=== PATIENT | female | born 1970 | race Caucasian/White ===

== ENCOUNTER 2017-12-25 09:29 | Day surgery (SDC) | payer OTHER ==
[2017-12-24 12:15] VITALS: BMI 24.0
[2017-12-25] MEDS ORDERED: PROPOFOL 20 ML ONE (11:02)
[2017-12-25] MEDS ORDERED: MIDAZOLAM HCL 2 MG/2 ML SINGLE DOSE VIAL ONE (11:02)
[2017-12-25] MEDS ORDERED: VASOPRESSIN 20 UNITS/ML VIAL IV ONE (11:15)
[2017-12-25] MEDS ORDERED: ceFAZolin SODIUM 1 GM VIAL ONE (11:36)
[2017-12-25] MEDS ORDERED: ceFAZolin SODIUM 1 GM VIAL IVPB ONE (11:36)
[2017-12-25] MEDS ORDERED: LIDOCAINE 1%/EPI 1:100000 (20 ML MULTI DOSE VIAL) ONE (11:37)
[2017-12-25] MEDS ORDERED: LIDOCAINE 1%/EPI 1:100000 (50 ML MULTI DOSE VIAL) INF ONE (11:38)
[2017-12-25] MEDS ORDERED: DEXAMETHASONE SOD PHOSPHATE 4 MG/1 ML VIAL ONE (11:38)
[2017-12-25] MEDS ORDERED: KETOROLAC TROMETHAMINE 30 MG/1 ML VIAL ONE (11:49)
[2017-12-25] MEDS ORDERED: ONDANSETRON 4 MG/2 ML VIAL IVPUSH PRN (12:20)
[2017-12-25] MEDS ORDERED: ACETAMINOPHEN 325 MG TABLET (FP) PO PRN (12:20)
[2017-12-25] MEDS ORDERED: oxyCODONE HCL 5 MG TABLET PO PRN (12:20)
[2017-12-25] MEDS ORDERED: LACTATED RINGERS SOLUTION 1,000 ML IV SCH (12:30)
[2017-12-25 15:16] VITALS: PULSE 70
[2017-12-25 15:17] VITALS: BP 121/70; TEMP 98.6
--- NOTE | 2017-12-26 16:58 | PATH ---
Surgical Pathology Report Patient Name: BERT MENDOZA [facility]. Rec. #: [id number] /Age/Gender: 1970 (Age: 47) / F Account: [id number] Location: AMBULATORY SURG Taken: 12/25/2017 Received: 12/25/2017 Reported: 12/26/2017 Physicians: Dre Coronado M.D. Specimen(s) Received PORTION OF ANTERIOR VAGINAL WALL Clinical History Urinary incontinence Final Diagnosis ANTERIOR VAGINAL WALL, EXCISION: VAGINAL SQUAMOUS MUCOSA WITHOUT SIGNIFICANT PATHOLOGIC FINDINGS. Electronically Signed Iris Srivastava M.D. Gross Description Received in formalin labeled "portion of anterior vaginal wall," is a 2.0 x 1.4 x 0.4 cm unoriented portion of pink-raymundo soft tissue, consistent with a portion of vaginal wall. Pastry Wrapper sections are submitted in one cassette. /12/25/201712/25/2017
--- NOTE | 2017-12-27 10:30 | OP ---
DATE OF OPERATION: 12/25/2017 PREOPERATIVE DIAGNOSIS: Stress incontinence. POSTOPERATIVE DIAGNOSIS: Stress incontinence. PROCEDURE: Midurethral sling placement. HISTORY: This is a 47-year-old female who was found to have clinical stress incontinence with 2 pads per day, approximately 50 mmHg leak point pressure. After discussing treatment options, patient elected to undergo the above-stated procedure. All risks and complications were discussed with the patient. BRIEF OPERATIVE NOTE: Patient brought to the operating room, placed in supine position. Once general anesthesia was administered, patient was transferred to dorsal lithotomy position, prepped and draped in standard sterile fashion. Intravenous antibiotics were given. At this time an 18-[place] Citizen Perez was placed to suction drainage. Approximately 10 mL of lidocaine with epinephrine was used to anesthetize the anterior vaginal wall approximately 1 cm proximal to the meatus. The anterior vaginal wall was then dissected free from the periurethral and surrounding tissue. The obturator space was created using sharp and blunt dissection. The obturator foramen was identified bilaterally. At this time an [place] sling was placed in the normal fashion. The sling was lying flat in the midurethral position with low degree of tension. At this time the anterior vaginal wall was closed using a 2-0 Vicryl running suture. A 2-inch vaginal packing was applied. The Perez was left to straight drainage. Patient brought to the recovery room in stable and satisfactory condition. Philippe [id number]
== END 2017-12-25 14:50 | disposition home or self-care (01) ==
LOC: JASU-SURG 09:29 → JASUSAT 09:29
PROVIDERS: ATTEND Urology
PROC: 0TSD0ZZ Reposition Urethra, Open Approach (ICD-10-PCS; principal; 2017-12-25 11:00)
DX: N39.3 Stress incontinence (female) (male) (principal)
CPT/HCPCS: 36415; 84702; 88304-TC; 94760

== ENCOUNTER 2020-02-18 16:31 | Emergency (ER) | payer OTHER ==
--- NOTE | 2020-02-18 17:05 | TELE ---
HPI - General Reason For Visit: COVID TEST History Source: Patient Past History - Medical History Allergies/Adverse Reactions: Allergies Allergy/AdvReac Type Severity Reaction Status Date / Time No Known Allergies Allergy Verified 12/25/17 10:28 Home Medications: Ambulatory Orders NK [No Known Home Medication] 12/24/17 Anemia: No Asthma: No Cancer: No Cardiac Disorders: No CVA: No COPD: No CHF: No Dementia: No Diabetes: No GI Disorders: No Disorders: No HTN: No Hypercholesterolemia: No Liver Disease: No Seizures: No Thyroid Disease: No - Psycho-Social/Smoking History Smoking History: Never smoked Have you smoked in the past 12 months: No Review of Systems - Review of Systems Constitutional: No: Fever HEENTM: No: Eye Pain, Ear Pain Respiratory: No: Cough, Shortness of Breath Cardiac (ROS): No: Chest Pain - Medical Decision Making 02/18/20 17:05 Wants covid swab done. No sxs. Sent to [facility] Discharge Diagnosis at time of Disposition: Encounter by telehealth for suspected COVID-19 - Referrals Follow-up Referral(s): Micheal Brown MD [Primary Care Provider] - - Patient Instructions - Discharge Disposition: HOME
== END 2020-02-18 19:16 | disposition home or self-care (01) ==
LOC: JVIRT 16:31
DX: Z11.59 Encounter for screening for other viral diseases (principal)
CPT/HCPCS: Q3014-GT; U0003

== ENCOUNTER 2020-03-13 19:30 | Emergency (ER) | payer OTHER ==
[2020-03-13 19:37] VITALS: BP 131/77; PULSE 84; TEMP 98.5; BMI 22.4
--- NOTE | 2020-03-13 20:16 | PDOC ---
History of Present Illness - General Chief Complaint: Pain, Acute Stated Complaint: ABDOMINAL PAIN Time Seen by Provider: 03/13/20 20:15 History Source: Patient Exam Limitations: No Limitations - History of Present Illness Initial Comments: 03/13/20 20:36 49yF w PMHx gastritis presenting w sudden onset intermittent epigastric and LLQ pain, n/v started at 12pm today. Pain started before she ate lunch, worsened after she finished meal. Took pantoprazole w some relief. Denies fever, cough, chest pain, SOB, dysuria, diarrhea, constipation Past History - Medical History Allergies/Adverse Reactions: Allergies Allergy/AdvReac Type Severity Reaction Status Date / Time No Known Allergies Allergy Verified 12/25/17 10:28 Home Medications: Ambulatory Orders Cephalexin Monohydrate [Keflex -] 500 mg PO Q6H 7 Days #28 capsule 03/13/20 Polyethylene Glycol 3350 [Miralax (For Daily Use) -] 17 gm PO DAILY #1 bottle 03/13/20 Anemia: No Asthma: No Cancer: No Cardiac Disorders: No CVA: No COPD: No CHF: No Dementia: No Diabetes: No GI Disorders: No Disorders: No HTN: No Hypercholesterolemia: No Liver Disease: No Seizures: No Thyroid Disease: No - Reproductive History Is Patient Now?: No - Immunization History Immunization Up to Date: Yes - Psycho-Social/Smoking History Smoking History: Never smoked Have you smoked in the past 12 months: No - Substance Abuse Hx (Audit-C & DAST Scrn) How often the patient has a drink containing alcohol: Never Score: In Men: 4 or > Positive; In Women: 3 or > Positive: 0 Screen Result (Pos requires Nsg. Audit-10AR): Negative In the last yr the pt used illegal drug/Rx for NonMed reason: No Score: Yes response is considered Positive: 0 Screen Result (Positive result requires Nsg. DAST-10): Negative Review of Systems - Review of Systems Constitutional: No: Chills, Fever HEENTM: No: Eye Pain, Nose Congestion Respiratory: No: Cough, Shortness of Breath Cardiac (ROS): No: Chest Pain, Palpitations ABD/GI: Yes: Nausea, Vomiting. No: Abdominal Distended, Constipated, Diarrhea : No: Burning, Dysuria Musculoskeletal: No: Back Pain, Joint Pain Integumentary: No: Bruising, Flushing Neurological: No: Headache, Seizure Psychiatric: No: Anxiety, Depression Endocrine: No: Intolerance to Cold, Intolerance to Heat Hematologic/Lymphatic: No: Anemia, Blood Clots *Physical Exam - Vital Signs Last Vital Signs Temp Pulse Resp BP Pulse Ox 98.5 F 84 19 131/77 97 03/13/20 19:31 03/13/20 19:31 03/13/20 19:31 03/13/20 19:31 03/13/20 19:31 - Physical Exam General Appearance: Yes: Nourished, Appropriately Dressed, Mild Distress HEENT: positive: EOMI, CORRY, Normal Voice, Hearing Grossly Normal. negative: Scleral Icterus (R), Scleral Icterus (L) Respiratory/Chest: positive: Lungs Clear, Normal Breath Sounds. negative: Chest Tender, Respiratory Distress Cardiovascular: positive: Regular Rhythm, Regular Rate, S1, S2. negative: Edema, Murmur Female Pelvic Exam: positive: normal external exam Gastrointestinal/Abdominal: positive: Normal Bowel Sounds, Tender (mild LLQ), Flat, Soft. negative: Organomegaly Musculoskeletal: negative: CVA Tenderness (R), CVA Tenderness (L) Extremity: positive: Delayed Capillary Refill Integumentary: positive: Normal Color, Dry, Warm Neurologic: positive: Fully Oriented, Alert, Normal Mood/Affect, Normal Response, Responsive ED Treatment Course - LABORATORY CBC & Chemistry Diagram: 03/13/20 19:57 03/13/20 19:57 Medical Decision Making - Medical Decision Making 03/13/20 20:35 EKG - NSR, HR 79, QTc 444, TWI I aVL CT AP - large stool burden, small hiatal hernia, 1.7cm collapsing r adnexal cyst w fluid possibly d/t cyst rupture WBC 13 w L shift --- 49yF w PMHx gastritis presenting w 1d sudden onset intermittent epigastric and LLQ pain, n/v d/t UTI and constipation. Not pancreatitis (lipase low) vs ACS (neg trop) vs kidney stone (no RBC) Given 1L NS, pepcid, maalox, zofran, tylenol, rocephin DC w keflex, miralax PCP f/u Discharge - Discharge Information Problems reviewed: Yes Clinical Impression/Diagnosis: UTI (urinary tract infection) Qualifiers: Urinary tract infection type: acute cystitis Hematuria presence: without hematuria Qualified Code(s): N30.00 - Acute cystitis without hematuria Constipation Qualifiers: Constipation type: unspecified constipation type Qualified Code(s): K59.00 - Constipation, unspecified Condition: Improved Disposition: HOME - Additional Discharge Information Prescriptions: Cephalexin Monohydrate [Keflex -] 500 mg PO Q6H 7 Days #28 capsule Polyethylene Glycol 3350 [Miralax (For Daily Use) -] 17 gm PO DAILY #1 bottle - Follow up/Referral Referrals: Micheal Brown MD [Primary Care Provider] - - Patient Discharge Instructions Patient Printed Discharge Instructions: DI for Urinary Tract Infection (UTI), DI for Constipation Additional Instructions: You have a urine infection and constipation Please take the prescribed Keflex for infection and Miralax for constipation as directed Take tylenol or ibuprofen if you have pain Drink lots of water Follow up with your primary care doctor within 1 week - Post Discharge Activity
[2020-03-13 20:25] LABS: BASO % 0.3 % (0-2.0); EOS % 0.7 % (0-4.5); HEMATOCRIT 46.4 % (32.4-45.2); HEMOGLOBIN 15.6 GM/dL (10.7-15.3); LYMPH % 7.2 % (8-40); MCH 30.2 pg (25.7-33.7); MCHC 33.6 g/dl (32.0-36.0); MEAN CELL VOLUME 89.9 fl (80-96); MEAN PLT VOLUME 8.5 fl (7.5-11.1); NEUT % 86.8 % (42.8-82.8); PLATELET COUNT 268 K/MM3 (134-434); RBC 5.16 M/mm3 (3.60-5.2); RDW 12.9 % (11.6-15.6); WHITE BLOOD COUNT 13.9 K/mm3 (4.0-10.0)
[2020-03-13] MEDS ORDERED: ONDANSETRON 4 MG/2 ML VIAL IVPUSH ONE (20:31)
[2020-03-13] MEDS ORDERED: FAMOTIDINE 20 MG/50 ML IVPB 20 MG/50 ML MG IVPB ONE ×2 (20:31→21:20)
[2020-03-13] MEDS ORDERED: SODIUM CHLORIDE 0.9% 500 ML INFUS.BAG IV ONE (20:31)
[2020-03-13] MEDS ORDERED: MAG HYDROX/AL HYDROX/SIMETH 30 ML UNIT-DOSE CUP PO ONE (20:32)
[2020-03-13] MEDS ORDERED: ACETAMINOPHEN 1000 MG/100 ML VIAL (NON FORMULARY) IVPB ONE (20:36)
[2020-03-13 20:51] LABS: ALBUMIN 4.4 g/dl (3.4-5.0); ALK PHOS 72 U/L (45-117); ANION GAP 7 MMOL/L (8-16); BILIRUBIN,TOTAL 0.3 mg/dL (0.2-1); BLOOD UREA NITROGEN 10.1 mg/dL (7-18); CALCIUM 9.7 mg/dL (8.5-10.1); CHLORIDE 107 mmol/L (98-107); CO2 27 mmol/L (21-32); CREATININE 0.8 mg/dL (0.55-1.3); GLUCOSE,RANDOM 100 mg/dL (74-106); LIPASE 71 U/L (73-393); POTASSIUM 3.8 mmol/L (3.5-5.1); SGOT/AST 32 U/L (15-37); SGPT/ALT 56 U/L (13-61); SODIUM 141 mmol/L (136-145); TOT PROT 8.4 g/dl (6.4-8.2)
[2020-03-13 21:10] LABS: EPI CELLS >36 /uL (0-25.1); HYALINE CASTS 9 /uL (0-3.1); URINE APPEARANCE CLOUDY; URINE BACTERIA 1489 /uL (0-1359); URINE BILIRUBIN NEGATIVE (NEGATIVE); URINE COLOR YELLOW; URINE GLUCOSE (UA) NEGATIVE (NEGATIVE); URINE KETONE NEGATIVE (NEGATIVE); URINE LEUK ESTERASE 1+ (NEGATIVE); URINE NITRITE NEGATIVE (NEGATIVE); URINE PROTEIN NEGATIVE (NEGATIVE); URINE RBC 29 /uL (0-23.9); URINE UROBILINOGEN 0.2 mg/dL (0.2-1.0); URINE WBC 61 /uL (0-25.8)
[2020-03-13] MEDS ORDERED: CEFTRIAXONE 1 GM in DEXTROSE 5%-WATER - 100 ML IVPB ONE (21:14)
[2020-03-13] MEDS ORDERED: ACETAMINOPHEN INJECTION 100 ML IVPB ONE (21:19)
[2020-03-13] MEDS ORDERED: MAG HYDROX/AL HYDROX/SIMETH 30 ML UNIT-DOSE CUP ONE (21:19)
[2020-03-13] MEDS ORDERED: CEFTRIAXONE 1 GM/50 ML BAG ONE (21:20)
[2020-03-13 21:27] LABS: HCG,QUALITATIVE URINE Negative
--- NOTE | 2020-03-13 23:53 | PDOC ---
Documentation entered by Esmer Schmitt SCRIBE, acting as scribe for Jose Dupree MD. Jose Dupree MD: This documentation has been prepared by the Oskar dias Sydney, SCRIBE, under my direction and personally reviewed by me in its entirety. I confirm that the documentation accurately reflects all work, treatment, procedures, and medical decision making performed by me. Attending Attestation - Resident Resident Name: PhillGiovanni - ED Attending Attestation I have performed the following: I have examined & evaluated the patient, The case was reviewed & discussed with the resident, I agree w/resident's findings & plan, Exceptions are as noted - HPI HPI: 03/13/20 21:12 Patient is a 49 year old female with a significant past medical history of gastritis who presents to the ED with sudden onset intermittent epigastric and LLQ pain that began at 12 noon today. As per patient, her pain began before she ate lunch and worsened after she finished eating. Patient also reports nausea and vomiting. Patient states she took pantoprazole with some relief of her symptoms. Denies headache, fever, chills, cough, chest pain, shortness of breath, diarrhea, constipation, or urinary changes. Allergies: NKDA PCP: Dr. Brown - Physicial Exam PE: 03/13/20 23:47 GENERAL: Awake, alert, and fully oriented, in no acute distress EYES: PERRLA, EOMI, sclera anicteric, conjunctiva clear ENT: Oropharynx clear without exudates. Moist mucosa NECK: Normal ROM, supple, no lymphadenopathy, JVD, or masses LUNGS: Breath sounds equal, clear to auscultation bilaterally. No wheezes, and no crackles HEART: Regular rate and rhythm, normal S1 and S2, no murmurs, rubs or gallops ABDOMEN: Soft, +suprapubic ttp, normoactive bowel sounds. No guarding, no rebound. No masses. No CVAT EXTREMITIES: Normal range of motion, no edema. No clubbing or cyanosis. No cords, erythema, or tenderness NEUROLOGICAL: Normal speech, cranial nerves intact, equal strength and sensation b/l SKIN: Warm, Dry, normal turgor, no rashes or lesions noted. - Medical Decision Making 03/13/20 23:49 49yo F presents to the ED with epigastric pain. +ttp to suprapubic area and mild LLQ on Dr. Mcintyre's exam. No RLQ ttp to suggest appy. Labs with leukocytosis, UA with infection. LFTs wnl, lipase wnl CTAP with constipation, fibroid uterus and ruptured R ovarian cyst Pain possibly 2/2 constipation and UTI. Will cover with keflex. Results discussed with pt in Kazakh via interpeter, she will f/u with PMD and OB for fibroid uterus I discussed the physical exam findings, ancillary test results and final diagnoses with the patient. I answered all of the patient's questions. The patient was satisfied with the care received and felt comfortable with the discharge plan and treatment plan. The patient will call their primary care physician within 24 hours to arrange follow-up and will return to the Emergency Department with any new, persistent or worsening symptoms. Discharge - Discharge Information Problems reviewed: Yes Clinical Impression/Diagnosis: Abdominal pain UTI (urinary tract infection) Qualifiers: Urinary tract infection type: acute cystitis Hematuria presence: without hematuria Qualified Code(s): N30.00 - Acute cystitis without hematuria Constipation Qualifiers: Constipation type: unspecified constipation type Qualified Code(s): K59.00 - Constipation, unspecified Condition: Improved Disposition: HOME - Additional Discharge Information Prescriptions: Cephalexin Monohydrate [Keflex -] 500 mg PO Q6H 7 Days #28 capsule Polyethylene Glycol 3350 [Miralax (For Daily Use) -] 17 gm PO DAILY #1 bottle - Follow up/Referral Referrals: Micheal Brown MD [Primary Care Provider] - - Patient Discharge Instructions Patient Printed Discharge Instructions: DI for Urinary Tract Infection (UTI), DI for Constipation Additional Instructions: You have a urine infection and constipation. Please take the prescribed Keflex for infection and Miralax for constipation as directed Take tylenol or ibuprofen if you have pain Drink lots of water Your CT scan also showed fibroids in your uterus. Please follow up in 1-2 weeks with your [facility] [employer] doctor for this. Follow up with your primary care doctor within 1 week. We hope you feel better soon. Tiene mac infeccin de orina y estreimiento. [place] el Keflex recetado para infecciones y Miralax para el estreimiento segn las indicaciones. [place] tylenol o ibuprofeno si tiene dolor. Beber sg agua Evans tomografa computarizada tambin mostr fibromas en evans tero. Librado un seguimiento en 1-2 semanas con evans mdico obstetra / gineclogo para esto. Librado un seguimiento con evans mdico de atencin primaria dentro de 1 semana. Esperamos que se sienta mejor pronto. - Post Discharge Activity
--- NOTE | 2020-03-15 21:49 | EKG ---
Test Reason : Blood Pressure : / mmHG Vent. Rate : 079 BPM Atrial Rate : 079 BPM P-R Int : 118 ms QRS Dur : 082 ms QT Int : 388 ms P-R-T Axes : 000 130 138 degrees QTc Int : 444 ms NORMAL SINUS RHYTHM LEFT POSTERIOR FASCICULAR BLOCK CANNOT RULE OUT INFERIOR INFARCT , AGE UNDETERMINED ABNORMAL ECG WHEN COMPARED WITH ECG OF 14-APR-2014 14:38, T WAVE VARIATION Confirmed by LAURENT JACKSON, SUSAN ([id number]) on 03/15/2020 9:49:06 PM Referred By: Confirmed By:SUSAN MANCILLA MD
== END 2020-03-14 00:51 | disposition home or self-care (01) ==
LOC: JER 19:30
PROC: 3E0333Z Introduction of Anti-inflammatory into Peripheral Vein, Percutaneous Approach (ICD-10-PCS; principal; 2020-03-13)
PROC: 3E033GC Introduction of Other Therapeutic Substance into Peripheral Vein, Percutaneous Approach (ICD-10-PCS; 2020-03-13)
DX: N30.00 Acute cystitis without hematuria (principal); K59.00 Constipation, unspecified
CPT/HCPCS: 36415; 74177-TC; 80053; 81003; 83690; 84484; 84703; 85025; 87086; 87186; 93005; 93010; 99285-25; J0131; Q9967